=== PATIENT | male | born 1970 | race Caucasian/White ===

== ENCOUNTER 2018-04-13 19:15 | Emergency (ER) | payer MEDICAID, SELFPAY ==
[2018-04-13 19:43] LABS: Bilirubin Negative (Negative); Blood, Urine Negative (Negative); Clarity CLEAR (Clear); Glucose, Urine (Dipstick) Negative (Negative); Leukocyte Negative (Negative); Nitrite Negative (Negative); Protein, Urine (Dipstick) 30 mg/dL (Neg-Trace); Urobilinogen 0.2 mg/dL (0.2-1.0)
[2018-04-13 19:46] LABS: Bacteria/HPF None Seen HPF (None Seen); Hyaline Casts/LPF 0-3 HYALINE CAST LPF (0-3 Hyaline); Squamous Epithelial 0-3 HPF (0-3); WBC/HPF 0-3 HPF (0-3)
[2018-04-13 19:49] LABS: RBC/HPF None Seen HPF (0-3)
[2018-04-13 19:57] LABS: Amphetamine Not Detected (NotDetected); Barbiturates Screen Not Detected (NotDetected); Benzodiazepine Screen Not Detected (NotDetected); Cocaine Metabolite Screen Not Detected (NotDetected); Medtox Control Line Valid? VALID (VALID); Medtox Reader # READER 4; Methadone Not Detected (NotDetected); Methamphetamine Not Detected (NotDetected); Opiate Screen Not Detected (NotDetected); Oxycodone Screen Not Detected (NotDetected); Phencyclidine (PCP) Not Detected (NotDetected); THC/Cannabinoid Screen Not Detected (NotDetected); Tricyclic Screen Not Detected (NotDetected)
[2018-04-13 20:15] LABS: #Basophils 0.1 thou/uL (0.0-0.2); #Eosinphils 0.2 thou/uL (0.0-0.7); #Monocytes 0.8 thou/uL (0.11-0.59); #Neutrophils 10.8 thou/uL (1.40-6.50); %Basophils 0.6 % (0.0-1.0); %Eosinophils 1.9 % (0.0-10.0); %Lymphocytes 7.5 % (21.0-51.0); %Monocytes 5.8 % (0.0-10.0); %Neutrophils 84.2 % (42.0-75.0); Hemoglobin 16.7 g/dL (14.0-18.0); Mean Corpuscular HGB CONC 33.7 g/dL (32.0-36.0); Mean Corpuscular Hemoglobin 31.5 pg (27.0-31.0); Mean Corpuscular Volume 93.3 fL (78.0-98.0); Mean Platelet Volume 7.9 fL (7.4-10.4); Platelet Count 220 thou/uL (130-400); RBC Distribution Width 12.7 % (11.5-14.5); Red Blood Cell (RBC) Count 5.29 mill/uL (4.70-6.10); White Blood Cell (WBC) Count 12.9 thou/uL (4.8-10.8)
[2018-04-13 20:36] LABS: ALT (SGPT) 30 U/L (8-55); AST (SGOT) 24 U/L (5-34); Albumin 4.5 g/dL (3.5-5.0); Alkaline Phosphatase 58 U/L (40-150); Anion Gap 15 mmol/L (10-20); BUN (Urea Nitrogen) 13 mg/dL (8.9-20.6); Bilirubin, Total 0.4 mg/dL (0.2-1.2); CK (CPK) 137 U/L (30-200); Calc. Creatinine Clearance 0 mL/min (70-130); Calcium 9.2 mg/dL (7.8-10.44); Carbon Dioxide 20 mmol/L (22-29); Chloride 107 mmol/L (98-107); Estimated GFR-MDRD 85; Globulin 3.3 g/dL (2.4-3.5); Glucose 98 mg/dL (70-105); Potassium 4.1 mmol/L (3.5-5.1); Protein, Total 7.8 g/dL (6.0-8.3); Sodium 138 mmol/L (136-145)
[2018-04-13 20:37] LABS: Acetaminophen Less than 6.0 mcg/mL (10.0-30.0); Alcohol Less than 10 mg/dL (Less than 10); Salicylate Less than 8.0 mg/dL (15.0-30.0)
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
== END 2018-04-13 20:17 | disposition home or self-care (01) ==
LOC: ERS 19:15
DX: G40.909 Epilepsy, unspecified, not intractable, without status epilepticus (principal); F17.220 Nicotine dependence, chewing tobacco, uncomplicated
CPT/HCPCS: 36415; 70450; 80053; 80306; 80307; 81003; 81015; 82550; 83605; 84146; 84443; 85025

== ENCOUNTER 2018-07-18 17:00 | Emergency (ER) | payer SELFPAY | END 2018-07-18 17:30 | disposition home or self-care (01) | LOC: ERS 17:00 | DX: R56.9 Unspecified convulsions (principal) | CPT/HCPCS: 99284 ==

== ENCOUNTER 2020-10-03 10:17 | Emergency (ER) | payer SELFPAY ==
[2020-10-03 10:51] LABS: #Basophils 0.1 thou/uL (0.0-0.2); #Eosinphils 0.1 thou/uL (0.0-0.7); #Lymphocytes 0.8 thou/uL (1.20-3.40); #Monocytes 0.6 thou/uL (0.11-0.59); #Neutrophils 10.4 thou/uL (1.40-6.50); %Basophils 0.4 % (0.0-1.0); %Eosinophils 0.9 % (0.0-10.0); %Lymphocytes 6.3 % (21.0-51.0); %Neutrophils 87.4 % (42.0-75.0); Hemoglobin 16.5 g/dL (14.0-18.0); Mean Corpuscular HGB CONC 33.8 g/dL (32.0-36.0); Mean Corpuscular Hemoglobin 32.2 pg (27.0-31.0); Mean Corpuscular Volume 95.3 fL (78.0-98.0); Mean Platelet Volume 7.5 fL (7.4-10.4); Platelet Count 217 thou/uL (130-400); RBC Distribution Width 12.7 % (11.5-14.5); Red Blood Cell (RBC) Count 5.12 mill/uL (4.70-6.10); White Blood Cell (WBC) Count 11.9 thou/uL (4.8-10.8)
[2020-10-03] MEDS ORDERED: levETIRAcetam 2,000 MG in Sodium Chloride 0.9% 100 ML IVPB SCH (11:00)
[2020-10-03 11:13] LABS: ALT (SGPT) 55 U/L (8-55); AST (SGOT) 37 U/L (5-34); Albumin 4.3 g/dL (3.5-5.0); Alkaline Phosphatase 68 U/L (40-110); Anion Gap 13 mmol/L (10-20); BUN (Urea Nitrogen) 10 mg/dL (8.9-20.6); Bilirubin, Total 0.7 mg/dL (0.2-1.2); Calc. Creatinine Clearance 0 mL/min (70-130); Calcium 8.8 mg/dL (7.8-10.44); Carbon Dioxide 22 mmol/L (22-29); Chloride 106 mmol/L (98-107); Globulin 3.3 g/dL (2.4-3.5); Glucose 136 mg/dL (70-105); Potassium 4.1 mmol/L (3.5-5.1); Protein, Total 7.6 g/dL (6.0-8.3); Sodium 137 mmol/L (136-145)
== END 2020-10-03 13:00 | disposition home or self-care (01) ==
LOC: ERS 10:17
DX: G40.909 Epilepsy, unspecified, not intractable, without status epilepticus (principal); I10 Essential (primary) hypertension
CPT/HCPCS: 36415; 70450; 80053; 85025; J1953; J3490

== ENCOUNTER 2020-12-02 07:45 | Emergency (ER) | payer SELFPAY ==
[2020-12-02 08:22] LABS: #Basophils 0.1 thou/uL (0.0-0.2); #Eosinphils 0.1 thou/uL (0.0-0.7); #Lymphocytes 0.7 thou/uL (1.20-3.40); #Monocytes 0.5 thou/uL (0.11-0.59); #Neutrophils 6.6 thou/uL (1.40-6.50); %Basophils 1.1 % (0.0-1.0); %Eosinophils 1.2 % (0.0-10.0); %Lymphocytes 8.8 % (21.0-51.0); %Monocytes 6.4 % (0.0-10.0); %Neutrophils 82.5 % (42.0-75.0); Hemoglobin 16.1 g/dL (14.0-18.0); Mean Corpuscular HGB CONC 33.1 g/dL (32.0-36.0); Mean Corpuscular Hemoglobin 32.4 pg (27.0-31.0); Mean Corpuscular Volume 97.7 fL (78.0-98.0); Platelet Count 202 thou/uL (130-400); RBC Distribution Width 13.9 % (11.5-14.5); Red Blood Cell (RBC) Count 4.98 mill/uL (4.70-6.10)
[2020-12-02 08:42] LABS: ALT (SGPT) 24 U/L (8-55); AST (SGOT) 18 U/L (5-34); Albumin 4.1 g/dL (3.5-5.0); Alkaline Phosphatase 73 U/L (40-110); Anion Gap 14 mmol/L (10-20); BUN (Urea Nitrogen) 11 mg/dL (8.9-20.6); Bilirubin, Total 0.5 mg/dL (0.2-1.2); Calc. Creatinine Clearance 0 mL/min (70-130); Calcium 9.1 mg/dL (7.8-10.44); Carbon Dioxide 17 mmol/L (22-29); Chloride 111 mmol/L (98-107); Globulin 2.8 g/dL (2.4-3.5); Glucose 111 mg/dL (70-105); Protein, Total 6.9 g/dL (6.0-8.3); Sodium 138 mmol/L (136-145)
[2020-12-02] MEDS ORDERED: levETIRAcetam 500 MG TAB PO SCH ×2 (12:15→21:00)
[2020-12-02] MEDS ORDERED: Lorazepam 2 MG/ML VIAL SLOW IVP PRN (12:17)
[2020-12-02] MEDS ORDERED: Ondansetron PF 4 MG/2 ML Vial IVP PRN (12:21)
[2020-12-02] MEDS ORDERED: Ondansetron ODT 4 MG TAB PO PRN (12:21)
[2020-12-02] MEDS ORDERED: Acetaminophen 650 MG Suppository PR PRN (12:21)
[2020-12-02] MEDS ORDERED: Acetaminophen 325 MG TAB PO PRN (12:21)
[2020-12-02] MEDS ORDERED: Sodium Chloride 0.9% 1,000 ML IV SCH (12:30)
[2020-12-02 13:19] LABS: Acetaminophen Less than 6.0 mcg/mL (10.0-30.0); Alcohol Less than 10 mg/dL (Less than 10); Salicylate Less than 8.0 mg/dL (15.0-30.0)
[2020-12-02] MEDS ORDERED: Famotidine 20 MG TAB PO SCH (21:00)
[2020-12-02] MEDS ORDERED: Topiramate 100 MG TAB PO SCH (21:00)
[2020-12-03 07:41] LABS: #Eosinphils 0.3 thou/uL (0.0-0.7); #Lymphocytes 1.5 thou/uL (1.20-3.40); #Monocytes 0.8 thou/uL (0.11-0.59); %Basophils 0.6 % (0.0-1.0); %Eosinophils 4.3 % (0.0-10.0); %Lymphocytes 19.6 % (21.0-51.0); %Monocytes 10.2 % (0.0-10.0); %Neutrophils 65.4 % (42.0-75.0); Hemoglobin 15.7 g/dL (14.0-18.0); Mean Corpuscular Hemoglobin 33.1 pg (27.0-31.0); Mean Corpuscular Volume 97.5 fL (78.0-98.0); Mean Platelet Volume 8.3 fL (7.4-10.4); Platelet Count 175 thou/uL (130-400); RBC Distribution Width 14.1 % (11.5-14.5); Red Blood Cell (RBC) Count 4.74 mill/uL (4.70-6.10); White Blood Cell (WBC) Count 7.6 thou/uL (4.8-10.8)
[2020-12-03] MEDS ORDERED: Lorazepam 2 MG/ML VIAL SLOW IVP PRN (07:53)
[2020-12-03 08:03] LABS: Anion Gap 12 mmol/L (10-20); BUN (Urea Nitrogen) 10 mg/dL (8.9-20.6); Calc. Creatinine Clearance 0 mL/min (70-130); Calcium 8.7 mg/dL (7.8-10.44); Carbon Dioxide 20 mmol/L (22-29); Chloride 111 mmol/L (98-107); Glucose 89 mg/dL (70-105); Potassium 3.3 mmol/L (3.5-5.1); Sodium 140 mmol/L (136-145)
[2020-12-03] MEDS ORDERED: Potassium Chloride 20 MEQ TAB PO SCH (08:15)
[2020-12-03] MEDS ORDERED: Lacosamide 50 mg Tablet PO SCH (09:00)
== END 2020-12-02 09:51 | disposition home or self-care (01) ==
LOC: ERS 07:45
DX: R56.9 Unspecified convulsions (principal)
CPT/HCPCS: 70450; 80048; 80053; 80307; 83735; 84146; 84443; 85025; 96374

== ENCOUNTER 2020-12-02 12:23 | Observation (INO) | payer SELFPAY ==
[2020-12-02] MEDS ORDERED: Lorazepam 2 MG/ML VIAL ONE (13:57)
[2020-12-02] MEDS ORDERED: Lorazepam 2 MG/ML VIAL SLOW IVP PRN (17:01)
[2020-12-02] MEDS ORDERED: Ondansetron PF 4 MG/2 ML Vial IVP PRN (17:15)
[2020-12-02] MEDS ORDERED: Ondansetron ODT 4 MG TAB SL PRN (17:15)
[2020-12-02 17:42] VITALS: BMI 39.8
[2020-12-02] MEDS ORDERED: Topiramate 100 MG TAB PO SCH (21:00)
[2020-12-02] MEDS: Lacosamide 50 mg Tablet PO SCH (21:43)
[2020-12-02] MEDS ORDERED: Acetaminophen 325 MG TAB PO PRN (22:34)
[2020-12-03] MEDS: Lacosamide 50 mg Tablet PO SCH (07:55)
[2020-12-03 08:29] LABS: Medtox Reader # READER 1
[2020-12-03 08:30] LABS: Amphetamine Not Detected (NotDetected); Barbiturates Screen Not Detected (NotDetected); Benzodiazepine Screen Not Detected (NotDetected); Cocaine Metabolite Screen Not Detected (NotDetected); Medtox Control Line Valid? VALID (VALID); Methadone Not Detected (NotDetected); Methamphetamine Not Detected (NotDetected); Opiate Screen Not Detected (NotDetected); Oxycodone Screen Not Detected (NotDetected); Phencyclidine (PCP) Not Detected (NotDetected); THC/Cannabinoid Screen Detected (NotDetected); Tricyclic Screen Not Detected (NotDetected)
[2020-12-03] MEDS ORDERED: Valproate Sodium 500 MG in Sodium Chloride 0.9% 100 ML IVPB SCH (12:30)
[2020-12-03 16:00] VITALS: BP 151/83; TEMP 98
[2020-12-03 20:29] LABS: SARS-CoV-2 PCR NAA for Saliva Not Detected (NotDetected)
== END 2020-12-03 16:54 | disposition home or self-care (01) ==
LOC: ERS 12:23 → ERHOLD 12:29 → 2SE 17:13
PROVIDERS: ADMIT Internal Medicine; ATTEND Internal Medicine
DX: G40.919 Epilepsy, unspecified, intractable, without status epilepticus (principal); F17.220 Nicotine dependence, chewing tobacco, uncomplicated; Z79.899 Other long term (current) drug therapy; Z20.822 Contact with and (suspected) exposure to COVID-19
CPT/HCPCS: 70551; 80306; 95712; 95819; 95957; 96374; 99285; G0378; J2060; J3490; U0003; U0005

== ENCOUNTER 2021-12-02 11:54 | Emergency (ER) | payer SELFPAY ==
[2021-12-03] MEDS ORDERED: Midazolam HCl 2 mg/2 ml Vial ONE (09:42)
[2021-12-03] MEDS ORDERED: fentaNYL Citrate/PF 100 MCG/2 ML SYRINGE ONE (09:42)
[2021-12-03] MEDS ORDERED: Propofol 500 MG/50 ML VIAL ONE (09:43)
== END 2021-12-02 13:52 | disposition left against medical advice (07) ==
LOC: ERS 11:54
DX: Z53.21 Procedure and treatment not carried out due to patient leaving prior to being seen by health care provider (principal)

== ENCOUNTER 2022-02-07 12:47 | Day surgery (SDC) | payer SELFPAY ==
[2022-02-07 14:01] LABS: #Eosinphils 0.1 thou/uL (0.0-0.7); #Monocytes 2.1 thou/uL (0.11-0.59); %Basophils 0.2 % (0.0-1.0); %Eosinophils 0.3 % (0.0-10.0); %Lymphocytes 5.3 % (21.0-51.0); %Monocytes 11.7 % (0.0-10.0); %Neutrophils 82.5 % (42.0-75.0); Hemoglobin 16.6 g/dL (14.0-18.0); Mean Corpuscular HGB CONC 35.1 g/dL (32.0-36.0); Mean Corpuscular Hemoglobin 35.7 pg (27.0-31.0); Mean Platelet Volume 8.3 fL (7.4-10.4); Platelet Count 160 thou/uL (130-400); RBC Distribution Width 12.5 % (11.5-14.5); Red Blood Cell (RBC) Count 4.64 mill/uL (4.70-6.10); White Blood Cell (WBC) Count 18.1 thou/uL (4.8-10.8)
[2022-02-07 14:23] LABS: ALT (SGPT) 16 U/L (8-55); AST (SGOT) 15 U/L (5-34); Albumin 4.2 g/dL (3.5-5.0); Alkaline Phosphatase 49 U/L (40-110); Anion Gap 14 mmol/L (10-20); BUN (Urea Nitrogen) 9 mg/dL (8.9-20.6); Calc. Creatinine Clearance 0 mL/min (70-130); Calcium 8.8 mg/dL (7.8-10.44); Carbon Dioxide 17 mmol/L (22-29); Chloride 105 mmol/L (98-107); Estimated GFR 104; Globulin 3.5 g/dL (2.4-3.5); Glucose 108 mg/dL (70-105); Lipase 17 U/L (8-78); Potassium 3.8 mmol/L (3.5-5.1); Protein, Total 7.7 g/dL (6.0-8.3); Sodium 132 mmol/L (136-145)
[2022-02-07] MEDS ORDERED: Ketorolac Tromethamine 30 MG/ML VIAL ONE (14:51)
[2022-02-07 15:43] LABS: SARS-CoV-2 NAA Rapid Test Not Detected (NotDetected)
[2022-02-07] MEDS ORDERED: Bupivacaine/Epinephrine 0.25% 30 ML VIAL ONE (15:50)
[2022-02-07] MEDS ORDERED: HYDROmorphone 2 MG/ML VIAL ONE (16:10)
[2022-02-07] MEDS ORDERED: Midazolam HCl 2 mg/2 ml Vial ONE (16:10)
[2022-02-07] MEDS ORDERED: SUGAMMADEX SODIUM 200 MG/2 ML VIAL ONE ×2 (16:10→16:11)
[2022-02-07] MEDS ORDERED: Famotidine/PF 20 mg/2ml Vial ONE (16:10)
[2022-02-07] MEDS ORDERED: fentaNYL Citrate/PF 100 MCG/2 ML SYRINGE ONE (16:10)
[2022-02-07] MEDS ORDERED: Phenylephrine 10 MG/ML VIAL ONE (16:38)
[2022-02-07] MEDS ORDERED: Lidocaine 1% PF 5 ML VIAL ONE (16:38)
[2022-02-07] MEDS ORDERED: ePHEDrine 50 MG/ML VIAL ONE (16:38)
[2022-02-07] MEDS ORDERED: PROPOFOL 200 MG/20 ML VIAL ONE (16:38)
[2022-02-07] MEDS ORDERED: Rocuronium Bromide 10 MG/ML (10ML VIAL) ONE (16:38)
[2022-02-07] MEDS ORDERED: Ondansetron PF 4 MG/2 ML Vial ONE (16:38)
[2022-02-07] MEDS ORDERED: Dexamethasone 20 MG/5 ML VIAL ONE (16:38)
[2022-02-07] MEDS ORDERED: Metoclopramide HCl 10 MG/2 ML VIAL ONE (16:38)
[2022-02-07] MEDS ORDERED: HYDROmorphone 2 MG/ML VIAL SLOW IVP PRN (17:45)
[2022-02-07] MEDS ORDERED: Promethazine HCl 25 MG/ML VIAL IM PRN (17:45)
[2022-02-07] MEDS ORDERED: Ondansetron HCl/PF 4 MG/2 ML Vial IVP PRN (17:45)
[2022-02-07] MEDS ORDERED: Meperidine HCl/PF 25 MG/ML VIAL SLOW IVP PRN (17:45)
[2022-02-07] MEDS ORDERED: Promethazine HCl 25 MG/ML VIAL IVPB PRN (17:45)
== END 2022-02-07 18:54 | disposition home or self-care (01) ==
LOC: ERS 12:47 → SDC 16:25
PROVIDERS: ATTEND Specialist
PROC: 0DTJ4ZZ Resection of Appendix, Percutaneous Endoscopic Approach (ICD-10-PCS; principal; 2022-02-07)
DX: K80.12 Calculus of gallbladder with acute and chronic cholecystitis without obstruction (principal); G40.909 Epilepsy, unspecified, not intractable, without status epilepticus; Z79.899 Other long term (current) drug therapy; Z20.822 Contact with and (suspected) exposure to COVID-19
CPT/HCPCS: 76705; 80053; 83690; 85025; 88304; 93005; C1713; J1100; J1170; J1885; J1956; J2250; J2370; J2405; J2704; J2765; J3490; S0028; U0002

== ENCOUNTER 2022-02-11 14:00 | Observation (INO) | payer SELFPAY ==
[~2022-02-11 14:00] MED LIST: Iopamidol-370 76% 500 ML 1 ML ONE
[2022-02-11 16:09] LABS: #Eosinphils 0.2 thou/uL (0.0-0.7); #Lymphocytes 1.7 thou/uL (1.20-3.40); %Basophils 0.4 % (0.0-1.0); %Eosinophils 1.6 % (0.0-10.0); %Lymphocytes 15.4 % (21.0-51.0); %Monocytes 9.3 % (0.0-10.0); %Neutrophils 73.3 % (42.0-75.0); Hemoglobin 15.9 g/dL (14.0-18.0); Mean Corpuscular HGB CONC 33.3 g/dL (32.0-36.0); Mean Corpuscular Hemoglobin 34.3 pg (27.0-31.0); Platelet Count 225 thou/uL (130-400); Red Blood Cell (RBC) Count 4.63 mill/uL (4.70-6.10); White Blood Cell (WBC) Count 10.9 thou/uL (4.8-10.8)
[2022-02-11 16:35] LABS: ALT (SGPT) 57 U/L (8-55); AST (SGOT) 39 U/L (5-34); Albumin 4.1 g/dL (3.5-5.0); Alkaline Phosphatase 70 U/L (40-110); Anion Gap 13 mmol/L (10-20); BUN (Urea Nitrogen) 14 mg/dL (8.9-20.6); Bilirubin, Total 1.1 mg/dL (0.2-1.2); Calc. Creatinine Clearance 0 mL/min (70-130); Calcium 9.4 mg/dL (7.8-10.44); Carbon Dioxide 20 mmol/L (22-29); Chloride 108 mmol/L (98-107); Estimated GFR 91; Glucose 89 mg/dL (70-105); Lipase 33 U/L (8-78); Potassium 3.7 mmol/L (3.5-5.1); Protein, Total 8.1 g/dL (6.0-8.3); Sodium 137 mmol/L (136-145)
[2022-02-11] MEDS ORDERED: traMADol HCl 50 MG TAB PO PRN ×2 (18:03→18:07)
[2022-02-11] MEDS ORDERED: Ondansetron PF 4 MG/2 ML Vial IVP PRN (18:03)
[2022-02-11] MEDS ORDERED: Ondansetron ODT 4 MG TAB PO PRN (18:03)
[2022-02-11] MEDS ORDERED: hydrALAZINE 20 MG/ML VIAL SLOW IVP PRN (18:03)
[2022-02-11] MEDS ORDERED: HYDROcodone/Acetaminophen 10/325 mg Tablet PO PRN ×2 (18:03)
[2022-02-11] MEDS ORDERED: Morphine 2 MG/ML VIAL SLOW IVP PRN (18:03)
[2022-02-11] MEDS ORDERED: Morphine 4 MG/ML VIAL SLOW IVP PRN (18:03)
[2022-02-11] MEDS ORDERED: Ibuprofen 600 MG TAB PO PRN (18:05)
[2022-02-11] MEDS ORDERED: Acetaminophen 500 MG TAB PO PRN (18:05)
[2022-02-11] MEDS ORDERED: Acetaminophen 500 MG TAB PO SCH (18:15)
[2022-02-11] MEDS: D5 1/2 NS w/20 mEq KCL 1,000 ML IV SCH (20:49)
[2022-02-11] MEDS: Famotidine 20 MG TAB PO SCH (20:50)
[2022-02-11] MEDS: Topiramate 100 MG TAB PO SCH (20:51)
[2022-02-11] MEDS ORDERED: Divalproex Sodium 250 MG (DR) TAB PO SCH (21:00)
[2022-02-11] MEDS ORDERED: Enoxaparin Sodium 40 MG/0.4 ML SYRINGE SC SCH (21:00)
[2022-02-11 22:56] VITALS: BMI 39.1
[2022-02-12] MEDS ORDERED: Acetaminophen 500 MG TAB PO PRN (01:00)
[2022-02-12] MEDS ORDERED: Piperacillin/Tazobactam 3.375 GM in Sodium Chloride 0.9% 100 ML IVPB SCH ×2 (04:00→09:00)
[2022-02-12] MEDS: D5 1/2 NS w/20 mEq KCL 1,000 ML IV SCH (04:14)
[2022-02-12] MEDS ORDERED: Piperacillin/Tazobactam 4.5 GM in Sodium Chloride 0.9% 100 ML IVPB SCH (06:00)
[2022-02-12] MEDS ORDERED: Polyethylene Glycol 3350 17 GM Packet PO SCH (09:00)
[2022-02-12] MEDS ORDERED: Divalproex Sodium DR 500 MG TAB PO SCH (09:00)
[2022-02-12] MEDS ORDERED: Amoxicillin/Potassium Clav 875 MG TAB PO SCH (09:00)
[2022-02-12] MEDS: Famotidine 20 MG TAB PO SCH (09:40)
[2022-02-12] MEDS: Topiramate 100 MG TAB PO SCH (09:40)
[2022-02-12 12:09] VITALS: BP 145/95; TEMP 98.9
== END 2022-02-12 12:30 | disposition home or self-care (01) ==
LOC: ERS 14:00 → SJJU 17:00
PROVIDERS: ADMIT Specialist; ATTEND Specialist
DX: G89.18 Other acute postprocedural pain (principal); R10.11 Right upper quadrant pain; G40.909 Epilepsy, unspecified, not intractable, without status epilepticus; F17.220 Nicotine dependence, chewing tobacco, uncomplicated; Z79.2 Long term (current) use of antibiotics; Z79.899 Other long term (current) drug therapy
CPT/HCPCS: 74177; 78226; 80053; 83690; 85025; 96365; 96372; A9537; G0378; J1650; J2543; J3480; J3490; Q9967